=== PATIENT | female | born 1995 | race Caucasian/White ===

== ENCOUNTER 2018-09-21 05:10 | Inpatient (IN) | payer MEDICAID ==
[~2018-09-21] VITALS: Ht 152.4 cm; Wt 55.9 kg
[2018-09-21] MEDS: D5%-LACTATED RINGERS 1,000 ML IV SCH ×2 (05:12→15:37)
[2018-09-21] MEDS ORDERED: OXYTOCIN 30U/ 0.9% NaCL 500ML 500 ML IV ONE (05:12)
[2018-09-21] MEDS ORDERED: OXYTOCIN 30U/ 0.9% NaCL 500ML 500 ML IV PRN (05:12)
[2018-09-21] MEDS ORDERED: OXYTOCIN 30U/ 0.9% NaCL 500ML 500 ML ONE ×2 (05:18→18:57)
[2018-09-21] MEDS ORDERED: MISOPROSTOL 200 MCG TABLET ONE (05:18)
[2018-09-21] MEDS ORDERED: NEWBORN KIT ONE (05:18)
[2018-09-21] MEDS ORDERED: LIDOCAINE/PF 1%, 30ML ONE (05:19)
[2018-09-21] MEDS ORDERED: CALCIUM CARBONATE 500 MG TAB.CHEW PO PRN (05:30)
[2018-09-21] MEDS ORDERED: TERBUTALINE 1 MG/ML, 1ML IVPush PRN (05:30)
[2018-09-21] MEDS ORDERED: ONDANSETRON 2MG/ML, 2ML IVPush PRN (05:30)
[2018-09-21] MEDS ORDERED: FENTANYL PF 100 MCG/2ML IVPush PRN (05:30)
[2018-09-21] MEDS ORDERED: FENTANYL PF 100 MCG/2ML IV PRN (05:30)
[2018-09-21 05:37] LABS: BASOPHILS # (AUTO) 0.03 x10^3/uL (0-0.3); BASOPHILS % (AUTO) 0 % (0-1); EOSINOPHILS # (AUTO) 0.08 x10^3/uL (0-0.8); EOSINOPHILS % (AUTO) 1 % (1-7); LYMPHOCYTES # (AUTO) 2.09 x10^3/uL (1-6.1); LYMPHOCYTES % (AUTO) 20 % (22-44); MD NO; MEAN CORPUSCULAR HEMOGLOBIN 30.3 pg (27.0-34.8); MEAN CORPUSCULAR HGB CONC 34.2 g/dL (32.4-35.8); MEAN CORPUSCULAR VOLUME 88.8 fL (80-100); MEAN PLATELET VOLUME 9.6 fL (7.4-10.4); MONOCYTES # (AUTO) 0.83 x10^3/uL (0-1.4); MONOCYTES % (AUTO) 8 % (2-9); NEUTROPHILS # (AUTO) 7.49 x10^3/uL (1.8-8.0); NEUTROPHILS % (AUTO) 71 % (42-75); PLATELET COUNT 210 x10^3/uL (130-400); RED BLOOD COUNT 3.79 x10^6/uL (3.82-5.3); RED CELL DISTRIBUTION WIDTH 13.3 % (9.6-15.2)
[2018-09-21] MEDS: LACTATED RINGERS 1,000 ML IV SCH ×2 (06:15→13:12)
[2018-09-21 06:18] VITALS: BP 110/72
[2018-09-21] MEDS ORDERED: FENTANYL/BUPIV./NS/PF 250 ML EPIDCONT SCH (07:01)
[2018-09-21] MEDS ORDERED: BUPIVACAINE 0.25% ONE ×2 (08:59→09:59)
[2018-09-21] MEDS: LACTATED RINGERS 1,000 ML IVBOLUS PRN ×2 (09:44→10:47)
[2018-09-21] MEDS ORDERED: FENTANYL/BUPIV./NS/PF 250 ML EPIDCONT ONE (09:59)
[2018-09-21] MEDS ORDERED: LIDOCAINE/PF 1.5%-EPI 1:200K, 30ML ONE (09:59)
[2018-09-21] MEDS: OXYTOCIN 30U/ 0.9% NaCL 500ML 500 ML IV SCH (16:43)
[2018-09-21] MEDS ORDERED: OXYcodone IR 5MG TABLET PO PRN (17:00)
[2018-09-21] MEDS ORDERED: MISOPROSTOL 200 MCG TABLET PR PRN (17:00)
[2018-09-21] MEDS ORDERED: ACETAMINOPHEN 325 MG TABLET PO PRN (17:00)
[2018-09-21] MEDS ORDERED: ONDANSETRON 2MG/ML, 2ML IV PRN (17:00)
[2018-09-21 20:05] VITALS: BP 105/65
[2018-09-21] MEDS: IBUPROFEN 600 MG TABLET PO PRN (20:24)
[2018-09-21] MEDS: DOCUSATE 100 MG CAPSULE PO PRN (20:24)
[2018-09-22 00:29] VITALS: BP 96/60
[2018-09-22] MEDS: OXYTOCIN 30U/ 0.9% NaCL 500ML 500 ML IV SCH ×2 (02:43→10:02)
[2018-09-22] MEDS ORDERED: DIPH,PERTUSS(ACELL),TET VAC/PF NC IM-VACC ONE ×2 (03:45→04:00)
[2018-09-22] MEDS: IBUPROFEN 600 MG TABLET PO PRN ×3 (03:52→16:26)
[2018-09-22 04:00] VITALS: BP 95/57
[2018-09-22 04:51] LABS: BASOPHILS # (AUTO) 0.03 x10^3/uL (0-0.3); BASOPHILS % (AUTO) 0 % (0-1); EOSINOPHILS # (AUTO) 0.06 x10^3/uL (0-0.8); EOSINOPHILS % (AUTO) 1 % (1-7); LYMPHOCYTES # (AUTO) 1.77 x10^3/uL (1-6.1); LYMPHOCYTES % (AUTO) 15 % (22-44); MD NO; MEAN CORPUSCULAR HEMOGLOBIN 30.1 pg (27.0-34.8); MEAN CORPUSCULAR HGB CONC 33.7 g/dL (32.4-35.8); MEAN CORPUSCULAR VOLUME 89.4 fL (80-100); MEAN PLATELET VOLUME 9.7 fL (7.4-10.4); MONOCYTES % (AUTO) 7 % (2-9); NEUTROPHILS # (AUTO) 9.15 x10^3/uL (1.8-8.0); NEUTROPHILS % (AUTO) 77 % (42-75); PLATELET COUNT 158 x10^3/uL (130-400); RED BLOOD COUNT 3.42 x10^6/uL (3.82-5.3); RED CELL DISTRIBUTION WIDTH 13.2 % (9.6-15.2)
[2018-09-22 08:09] VITALS: BP 97/61
[2018-09-22] MEDS: OXYcodone/APAP 5/325MG TABLET PO PRN ×2 (08:54→17:36)
[2018-09-22] MEDS: DOCUSATE 100 MG CAPSULE PO PRN (08:54)
[2018-09-22] MEDS ORDERED: PRENATAL VIT/IRON/FA 1 EACH TABLET PO SCH (09:00)
[2018-09-22 13:47] VITALS: BP 98/62
[2018-09-22] MEDS ORDERED: IBUP-1222 PO (18:28)
[2018-09-22] MEDS ORDERED: PNEUMOCOCCAL 23 VACCINE IM-VACC ONE (19:00)
== END 2018-09-22 20:00 | disposition home or self-care (01) | DRG 806 ==
LOC: LDIP 05:10 → 2NW 19:55
PROVIDERS: ADMIT Obstetrics & Gynecology; ATTEND Obstetrics & Gynecology
PROC: 3E033VJ Introduction of Other Hormone into Peripheral Vein, Percutaneous Approach (ICD-10-PCS; principal; 2018-09-21)
PROC: 10E0XZZ Delivery of Products of Conception, External Approach (ICD-10-PCS; 2018-09-21)
PROC: 10907ZC Drainage of Amniotic Fluid, Therapeutic from Products of Conception, Via Natural or Artificial Opening (ICD-10-PCS; 2018-09-21)
PROC: 0HQ9XZZ Repair Perineum Skin, External Approach (ICD-10-PCS; 2018-09-21)
PROC: 3E0R3BZ Introduction of Anesthetic Agent into Spinal Canal, Percutaneous Approach (ICD-10-PCS; 2018-09-21)
PROC: 00HU33Z Insertion of Infusion Device into Spinal Canal, Percutaneous Approach (ICD-10-PCS; 2018-09-21)
DX: O69.81X0 Labor and delivery complicated by cord around neck, without compression, not applicable or unspecified (principal); O99.354 Diseases of the nervous system complicating childbirth; Z37.0 Single live birth; O99.344 Other mental disorders complicating childbirth; F32.9 Major depressive disorder, single episode, unspecified; G43.909 Migraine, unspecified, not intractable, without status migrainosus; O70.0 First degree perineal laceration during delivery; Z3A.39 39 weeks gestation of pregnancy; Z23 Encounter for immunization
CPT/HCPCS: 36415; J7121; 85025; 86850; 86900; 90656; 90715; 90732; G0378; J3490; J2590; J3010; J7120